=== PATIENT | male | born 1990 | race Caucasian/White ===

== ENCOUNTER 2017-03-08 10:46 | Inpatient (IN) | payer SELFPAY ==
[~2017-03-08] VITALS: Ht 177.8 cm; Wt 65.2 kg
[2017-03-08] MEDS ORDERED: AMMONIA 0.33 ML INHALANT IN ONE (10:49)
[2017-03-08] MEDS ORDERED: SODIUM CHLORIDE 0.9% 1,000 ML IVB ONE (10:54)
[2017-03-08 11:24] LABS: Basophils # (auto) 0 uL; Basophils % (auto) 0.3 % (0.0-2.0); CONDITION Y; Eosinophils # (auto) 0.1 uL; Eosinophils % (auto) 1.2 % (0.0-7.0); Hematocrit 44.4 % (41.0-53.0); Hemoglobin 15.3 g/dL (13.5-17.5); Lymphocytes # (auto) 1.7 uL; Lymphocytes % (auto) 21.3 % (10.0-50.0); Mean Corpuscular Hemoglobin 29.2 pg (28.0-32.0); Mean Corpuscular Hgb Conc. 34.5 g/dL (32.0-36.0); Mean Corpuscular Volume 84.6 fL (80.0-100.0); Mean Platelet Volume 8.3 fL (7.4-10.4); Monocytes # (auto) 0.6 uL; Monocytes % (auto) 7.1 % (0.0-12.0); Neutrophils # (auto) 5.6 uL; Neutrophils % (auto) 70.1 % (37.0-80.0); Platelet Count (auto) 215 10^3/uL (140-450); Red Cell Distribution Width 12.7 % (11.6-16.0)
[2017-03-08 11:36] LABS: INR 1.09 (0.9-1.15); Partial Thromboplastin Time 26.7 sec (22.64-33.71); Prothrombin Time 11.9 sec (9.37-12.3)
[2017-03-08] MEDS ORDERED: NALOXONE HCL 0.4 MG/ML VIAL IV ONE (11:45)
[2017-03-08 11:48] LABS: Albumin 3.9 g/dL (3.4-5.0); Alkaline Phosphatase 56 U/L (45-117); Anion Gap 8 (5-15); Aspartate Aminotransferase 14 U/L (15-37); BUN/Creatinine Ratio 16.5; Bilirubin, Total 0.4 mg/dL (0.2-1.0); Blood Urea Nitrogen 13 mg/dL (7-18); Calcium 8.9 mg/dL (8.5-10.1); Carbon Dioxide 25 mmol/L (21-32); Chloride 108 mmol/L (98-107); GFR African American 154 mL/min; GFR Non-African American 127 mL/min; Glucose 98 mg/dL (74-106); Magnesium 2.4 mg/dL (1.6-2.6); Potassium 3.6 mmol/L (3.5-5.1); Sodium 141 mmol/L (136-145); Total Protein 7.3 g/dL (6.4-8.2)
[2017-03-08] MEDS ORDERED: SODIUM CHLORIDE 0.9% 1,000 ML IV SCH (14:10)
[2017-03-08] MEDS ORDERED: NITROGLYCERIN 0.4 MG SL TAB SL PRN (14:15)
[2017-03-08] MEDS ORDERED: MORPHINE SULF INJ 2 MG/ML SYRINGE 1ML IV PRN ×3 (14:15)
[2017-03-08] MEDS ORDERED: PROMETHAZINE HCL 25 MG/ML 1ML IV PRN (14:15)
[2017-03-08] MEDS ORDERED: LACTULOSE 20Gm/30ML SOLN PO PRN (14:15)
[2017-03-08 16:18] LABS: Allen Test Yes; Base Excess -3.5 mmol/L (-2.0-2.0); Blood 02Sat 95.8 % (96-100); Blood COHb 0.2 % (0.5-1.5); Blood MetHb 0.5 % (0.0-1.5); HCO3 22.5 mmol/L (22-26.0); HHb 4.2 % (0.0-5.0); MODE ROOM AIR; O2Hb 95.1 % (94.0-97.0); PCO2 43.8 mmHg (35.0-45.0); PCO2(T) 43.8 mmHg (35.0-45.0); PO2 90.2 mmHg (80.0-100.0); PO2(T) 90.2 mmHg (80.0-100.0); Room 1020-ERT; Sample Type Arterial; pH 7.328 (7.350-7.450)
[2017-03-08 19:51] LABS: Urine Bilirubin Negative (Negative); Urine Blood Negative /uL (Negative); Urine Color Yellow (Yellow); Urine Glucose Normal (Normal); Urine Ketone Negative (Negative); Urine Mucus FEW (None Seen); Urine Nitrite Negative (Negative); Urine RBC 1 /hpf (0 - 3); Urine Urobilinogen Normal (Negative); Urine pH 6.5 (5.0-8.0)
[2017-03-08 20:00] VITALS: BP 110/49
[2017-03-08] MEDS: SODIUM CHLORIDE 0.9% 1,000 ML IV SCH (23:15)
[2017-03-09] VITALS: BP 108/51
[2017-03-09 04:45] VITALS: BP 95/56
[2017-03-09 05:08] LABS: Basophils # (auto) 0 uL; Basophils % (auto) 0.2 % (0.0-2.0); CONDITION Y; Eosinophils # (auto) 0 uL; Eosinophils % (auto) 0.4 % (0.0-7.0); Hematocrit 42.2 % (41.0-53.0); Hemoglobin 14.3 g/dL (13.5-17.5); Lymphocytes # (auto) 1.3 uL; Lymphocytes % (auto) 14.1 % (10.0-50.0); Mean Corpuscular Hgb Conc. 33.9 g/dL (32.0-36.0); Mean Corpuscular Volume 85.6 fL (80.0-100.0); Mean Platelet Volume 8.5 fL (7.4-10.4); Monocytes # (auto) 0.7 uL; Monocytes % (auto) 7.7 % (0.0-12.0); Neutrophils % (auto) 77.6 % (37.0-80.0); Platelet Count (auto) 184 10^3/uL (140-450); Red Cell Distribution Width 12.5 % (11.6-16.0)
[2017-03-09 05:30] LABS: Albumin 3.6 g/dL (3.4-5.0); BUN/Creatinine Ratio 9.5; Bilirubin, Total 0.8 mg/dL (0.2-1.0); Calcium 8.4 mg/dL (8.5-10.1); Potassium 3.4 mmol/L (3.5-5.1); Total Protein 6.6 g/dL (6.4-8.2)
[2017-03-09] MEDS: SODIUM CHLORIDE 0.9% 1,000 ML IV SCH ×3 (06:08→23:10)
[2017-03-09 07:30] VITALS: BP 92/54
[2017-03-09] MEDS ORDERED: SODIUM CHLORIDE 0.9% 1,000 ML IV ONE (10:00)
[2017-03-09] MEDS: POTASSIUM CHL 20MEQ/100ML 100 ML IV SCH ×2 (10:58→11:49)
[2017-03-09 11:49] VITALS: BP 95/47
[2017-03-09 15:54] VITALS: BP 96/44
[2017-03-09 19:52] VITALS: BP 104/68
[2017-03-10] VITALS: BP 96/48
[2017-03-10 04:12] VITALS: BP 100/49
[2017-03-10 06:05] LABS: Calcium 7.7 mg/dL (8.5-10.1); Potassium 3.7 mmol/L (3.5-5.1)
[2017-03-10 06:07] LABS: BUN/Creatinine Ratio 12.5
[2017-03-10 06:10] LABS: Total Protein 5.8 g/dL (6.4-8.2)
[2017-03-10 07:30] VITALS: BP 118/72
[2017-03-10 12:00] VITALS: BP 116/67
[2017-03-10 16:30] VITALS: BP 120/77
[2017-03-10] MEDS: SODIUM CHLORIDE 0.9% 1,000 ML IV SCH ×2 (17:13→23:30)
[2017-03-11] MEDS: SODIUM CHLORIDE 0.9% 1,000 ML IV SCH ×2 (06:26→16:15)
[2017-03-11 06:43] LABS: Basophils # (auto) 0 uL; Basophils % (auto) 0.5 % (0.0-2.0); CONDITION Y; Eosinophils # (auto) 0.2 uL; Eosinophils % (auto) 3.5 % (0.0-7.0); Hematocrit 40.9 % (41.0-53.0); Hemoglobin 14.1 g/dL (13.5-17.5); Lymphocytes # (auto) 1.6 uL; Lymphocytes % (auto) 31.6 % (10.0-50.0); Mean Corpuscular Hemoglobin 29.3 pg (28.0-32.0); Mean Corpuscular Hgb Conc. 34.5 g/dL (32.0-36.0); Mean Corpuscular Volume 84.7 fL (80.0-100.0); Mean Platelet Volume 8.5 fL (7.4-10.4); Monocytes # (auto) 0.6 uL; Monocytes % (auto) 11.4 % (0.0-12.0); Neutrophils # (auto) 2.8 uL; Platelet Count (auto) 184 10^3/uL (140-450); Red Cell Distribution Width 12.3 % (11.6-16.0); White Blood Cell 5.2 10^3/uL (4.4-10.8)
[2017-03-11 07:01] LABS: Potassium 3.7 mmol/L (3.5-5.1)
[2017-03-11 07:07] LABS: BUN/Creatinine Ratio 11.8; Calcium 8.6 mg/dL (8.5-10.1)
[2017-03-11 09:00] VITALS: BP 123/73
[2017-03-11 12:30] VITALS: BP_SYST 111; BP_SYST 115; BP_DIAS 70; BP_DIAS 71
[2017-03-11 15:30] VITALS: BP 111/71
== END 2017-03-11 18:20 | DRG 917 ==
LOC: ER 10:46 → EDBD 10:47 → TELE 10:47 → EDUNIT# 10:47 → DOU IN ICU 19:44 → TELE-WESTW 03-10 12:13
PROVIDERS: ADMIT Internal Medicine; ATTEND Internal Medicine
DX: T50.991A Poisoning by other drugs, medicaments and biological substances, accidental (unintentional), initial encounter (principal); G92 Toxic encephalopathy; E87.2 Acidosis; F33.9 Major depressive disorder, recurrent, unspecified; F19.188 Other psychoactive substance abuse with other psychoactive substance-induced disorder; Y92.89 Other specified places as the place of occurrence of the external cause
CPT/HCPCS: 36415; 36600; 70450; 71010; 80048; 80053; 80061; 80307; 80320; 81001; 82550; 82805; 82962; 83735; 84484; 85025; 85610; 85652; 85730; 87081; 87086; 93005; 95819; 96361; 96374; 99291; J3480

== ENCOUNTER 2017-03-11 18:37 | Emergency (ER) | payer MEDICAID ==
[~2017-03-11] VITALS: Ht 177.8 cm; Wt 63.5 kg
[2017-03-11 18:45] VITALS: BP 124/82
== END 2017-03-12 01:06 | disposition left against medical advice (07) ==
LOC: EDUNIT# 18:39 → ER 18:39
DX: T42.4X2A Poisoning by benzodiazepines, intentional self-harm, initial encounter (principal); Y92.89 Other specified places as the place of occurrence of the external cause; F32.9 Major depressive disorder, single episode, unspecified; F41.9 Anxiety disorder, unspecified